=== PATIENT | male | born 1995 | race Caucasian/White ===

== ENCOUNTER 2016-10-14 14:43 | Emergency (ER) | payer BC ==
[~2016-10-14] VITALS: Ht 190.5 cm; Wt 132.9 kg
[~2016-10-14 14:43] MED LIST: HYDROCHLOROTH12.5 M1 PO; PREDNISONE 20MG20 MG PO; TESSALON PERLE100 MG PO; TORADOL10 M2 PO; ZITHROMAX Z PA250 MG PO; ZOFRAN ODT4 MG PO
[2016-10-14 15:41] LABS: HEMOGLOBIN 16.7 g/dL (14.1-18.0); LYMPH # 2.1 K/mm3 (0.7-4.5); LYMPH % 28.6 % (10-50)
--- NOTE | 2016-10-14 15:58 | Emergency Room Report ---
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 N Clinical Suspician of Infection? N Mental Status: 1 - Regular (Normal Baseline) Sepsis Risk:Possible Sepsis Risk Have you (or family members/close friends) recently traveled outside the [place]? N If Yes, where/when: Have you had exposure to infectious disease within the past month? N TB? Other? Specify: Patient complains of some lower quadrant pain crampy in nature moderate in severity it started yesterday and is worse today denies any nausea vomiting and states he has chronic diarrhea since he had his gallbladder removed. Denies any fevers or chills he points to his umbilicus as the source of the pain. No radiation to the back ALLERGIES Coded Allergies: No Known Allergies (07/18/16) Home Medications Reported Medications Hydrochlorothiazide (Hydrochlorothiazide 12.5MG) 12.5 MG PO DAILY #30 History Medical History General CAD? No Angina: No MD: No Hypertension? Yes Hyperlipidemia? No CHF? No DVT? No PE? No COPD? No Asthma? Yes Anemia? No GERD? No Gastric ulcers? No GI Bleed? No Hernia? No Thyroid Problems? No Hypothyroidism? No CVA? No Seizures? No Diabetes? No Insulin Dependent: No Insulin Pump: No Home FSBS? No Renal Insuffiency? No End Stage Renal Disease? No UTI? No Stones? No BPH? No GB Disease: Yes Nephritic Syndrome? No Asplenia? No Hepatitis? No Sickle Cell Disease? No Arthritis? No Migraines? No Cataracts? No Glaucoma? No MRSA? No HIV? No TB? No Anxiety? No Depression? No Cancer? No More? Yes Additional hx: FATTY LIVER Immunization Hx DT/Tetanus 5-10 Years Ago Flu 1203-4010 Flu Season Pneumonia Never Had Surgical Hx Previous Surgery?Y EAR TUBES TONSILS Cholecystectomy Family History Family Hx Diabetes No CAD No Hypertension Yes Hyperlipidemia No Cancer No TB No Social History Smoking Hx Smoker: Current Every Day Smoker Tobacco: Yes Type Cigarettes Packs/day < 1 Pack Alcohol Alcohol: No Review of Systems All Other Systems Reviewed and Negative Physical Exam Vital Signs Vital Signs Date Time Temp Pulse Resp B/P Pulse O2 O2 Flow FiO2 Ox Delivery Rate 10/14 1710 98.1 87 18 145/107 94 10/14 1618 67 18 142/74 100 10/14 1501 98.1 96 20 171/101 98 General Appearance: Nontoxic Head: Normocephalic, without obvious abnormality, atraumatic. Eyes: conjunctiva/corneas clear ENT: Mucous membranes moist. Neck: No jugular venous distention. Cardiac: regular rate and rhythm Lungs: Clear to auscultation bilaterally Abdomen: Patient has tenderness at McBurney's point, as a Rovsing sign, has some bilateral lower quadrant tenderness but mainly at McBurney's point, Nondistended, positive bowel sounds, no rebound : No CVA tenderness Extremities: no edema Musculoskeletal: No chest wall tenderness Skin: No rashes or lesions to exposed skin. Neurologic: Alert. No gross focal deficits Psychiatric: Normal affect (Nataly BECKER, Britton) General Appearance normal appearance Respiratory Status No: respiratory distress. Cardiovascular normal exam Neurologic alert Medical Decision Making LABS/Meds/Orders Pt receiving controlled substance in ED? 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 PROCEDURE: Oral Contrast: None IV Contrast: 75 mL of Isovue-370. FINDINGS: The lung bases are clear. There is mild diffuse hepatic steatosis. There is been a prior cholecystectomy. No biliary dilatation. The spleen, adrenal glands, and pancreas are unremarkable. No hydronephrosis or obstructing ureteral calculus evident. Unremarkable appendix. No intestinal obstruction or free air. No evidence of appendicitis or diverticulitis. No abnormal fluid collection or focal inflammatory change. IMPRESSION: No acute intra-abdominal or pelvic pathology apparent 10/14/16 1755 BONAL / PS AT 1749 AT 1751 End of Report Content Results/Orders Laboratory Tests 10/14/16 1530: Sodium 140, Potassium 3.9, Chloride 103, Carbon Dioxide 27, BUN 12, Creatinine 0.9, Estimated Creat Clear 246 H, Estimated GFR (MDRD) 108, Glucose 111 H, Calcium 9.2, Total Bilirubin 0.8, AST 41 H, ALT 95 H, Alkaline Phosphatase 97, Total Protein 8.2, Albumin 4.4, Globulin 3.8 H, Albumin/Globulin Ratio 1.2, Amylase 74, Lipase 174, WBC 7.3, RBC 5.62, Hgb 16.7, Hct 48.5, MCV 86.3, RDW 12.5, Plt Count 266, MPV 8.1, Gran % 63.7, Gran # 4.6, Lymphocytes % 28.6, Monocytes % 5.1, Eosinophils % 1.8, Basophils % 0.8, Lymphocytes # 2.1, Monocytes # 0.4, Eosinophils # 0.1, Basophils # 0.1, PUBS MCHC 34.4, MCH 29.7 Current Medication Orders Sig/Kirsten Start time Last Medication Dose Route Stop Time Status Admin Sodium Chloride 10 ML PRN PRN 10/14 1545 AC 10/14 IV 10/15 1535 1540 Nitroglycerin 0 .STK-MED ONE 10/14 1527 DC .ROUTE Orders Procedure Date/time Status DIET-NOTHING BY MOUTH 10/14 D Active OXYGEN PER NURSE 10/[address] ABD W/RLQ PAIN REQ 10/14 1559 Complete IV SALINE LOCK 10/14 1535 Active LIPASE 10/14 1535 Complete COMPLETE METABOLIC PANEL 10/14 1535 Complete CBC WITH AUTO DIFF 10/14 1535 Complete AMYLASE 10/14 1535 Complete Departure Departure Disposition DC Home or Self Care(routine) Clinical Impression Primary Impression: Abdominal pain Condition STABLE Referrals Ajith Vázquez MD Patient Instructions DI for Abdominal Pain-Adult Additional Instructions call your primary md for recheck ED Critical Care Critical Care No at 1836
--- NOTE | 2016-10-14 15:58 | Emergency Room Report ---
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 N Clinical Suspician of Infection? N Mental Status: 1 - Regular (Normal Baseline) Sepsis Risk:Possible Sepsis Risk Have you (or family members/close friends) recently traveled outside the [place]? N If Yes, where/when: Have you had exposure to infectious disease within the past month? N TB? Other? Specify: Patient complains of some lower quadrant pain crampy in nature moderate in severity it started yesterday and is worse today denies any nausea vomiting and states he has chronic diarrhea since he had his gallbladder removed. Denies any fevers or chills he points to his umbilicus as the source of the pain. No radiation to the back ALLERGIES Coded Allergies: No Known Allergies (07/18/16) Home Medications Reported Medications Hydrochlorothiazide (Hydrochlorothiazide 12.5MG) 12.5 MG PO DAILY #30 History Medical History General CAD? No Angina: No [place]: No Hypertension? Yes Hyperlipidemia? No CHF? No DVT? No PE? No COPD? No Asthma? Yes Anemia? No GERD? No Gastric ulcers? No GI Bleed? No Hernia? No Thyroid Problems? No Hypothyroidism? No CVA? No Seizures? No Diabetes? No Insulin Dependent: No Insulin Pump: No Home FSBS? No Renal Insuffiency? No End Stage Renal Disease? No UTI? No Stones? No BPH? No GB Disease: Yes Nephritic Syndrome? No Asplenia? No Hepatitis? No Sickle Cell Disease? No Arthritis? No Migraines? No Cataracts? No Glaucoma? No MRSA? No HIV? No TB? No Anxiety? No Depression? No Cancer? No More? Yes Additional hx: FATTY LIVER Immunization Hx DT/Tetanus 5-10 Years Ago Flu 4587-9605 Flu Season Pneumonia Never Had Surgical Hx Previous Surgery?Y EAR TUBES TONSILS Cholecystectomy Family History Family Hx Diabetes No CAD No Hypertension Yes Hyperlipidemia No Cancer No TB No Social History Smoking Hx Smoker: Current Every Day Smoker Tobacco: Yes Type Cigarettes Packs/day < 1 Pack Alcohol Alcohol: No Review of Systems All Other Systems Reviewed and Negative Physical Exam Vital Signs Vital Signs Date Time Temp Pulse Resp B/P Pulse O2 O2 Flow FiO2 Ox Delivery Rate 10/14 1710 98.1 87 18 145/107 94 10/14 1618 67 18 142/74 100 10/14 1501 98.1 96 20 171/101 98 General Appearance: Nontoxic Head: Normocephalic, without obvious abnormality, atraumatic. Eyes: conjunctiva/corneas clear ENT: Mucous membranes moist. Neck: No jugular venous distention. Cardiac: regular rate and rhythm Lungs: Clear to auscultation bilaterally Abdomen: Patient has tenderness at McBurney's point, as a Rovsing sign, has some bilateral lower quadrant tenderness but mainly at McBurney's point, Nondistended, positive bowel sounds, no rebound : No CVA tenderness Extremities: no edema Musculoskeletal: No chest wall tenderness Skin: No rashes or lesions to exposed skin. Neurologic: Alert. No gross focal deficits Psychiatric: Normal affect (Nataly BECKER, Britton) General Appearance normal appearance Respiratory Status No: respiratory distress. Cardiovascular normal exam Neurologic alert Medical Decision Making LABS/Meds/Orders Pt receiving controlled substance in ED? No Comment nterpreter: (ROBIN) Beam Dyer: ([email or web address]) Report Date: 10/14/2016 16:20:00 Report Status: Final Begin of Report Content [facility] RADIOLOGY REPORT REPORT#: [id number] PATIENT NAME: LOBO ELARY MED REC #: [id number] BIRTHDATE: [birth year] EXAM DATE: 10/14/16 LOCATION: ER ROOM/BED: TECH: [facility] DR: ADMIT DATE: ORDERING DR: Nataly BECKER, Britton CC: Adriel BECKER,Last Ingram MD, Britton CT ABD PELVIS W/ CONTRAST CLINICAL INDICATION: RLQ PAIN ORDERING PHYSICIAN: Britton Ingram MD PATIENT AGE: 20 years COMPARISON: None TECHNIQUE: Axial images obtained with sagittal and coronal reformats. PROCEDURE: Oral Contrast: None IV Contrast: 75 mL of Isovue-370. FINDINGS: The lung bases are clear. There is mild diffuse hepatic steatosis. There is been a prior cholecystectomy. No biliary dilatation. The spleen, adrenal glands, and pancreas are unremarkable. No hydronephrosis or obstructing ureteral calculus evident. Unremarkable appendix. No intestinal obstruction or free air. No evidence of appendicitis or diverticulitis. No abnormal fluid collection or focal inflammatory change. IMPRESSION: No acute intra-abdominal or pelvic pathology apparent 10/14/16 1755 BONAL / PS AT 1749 AT 1751 End of Report Content Results/Orders Laboratory Tests 10/14/16 1530: Sodium 140, Potassium 3.9, Chloride 103, Carbon Dioxide 27, BUN 12, Creatinine 0.9, Estimated Creat Clear 246 H, Estimated GFR (MDRD) 108, Glucose 111 H, Calcium 9.2, Total Bilirubin 0.8, AST 41 H, ALT 95 H, Alkaline Phosphatase 97, Total Protein 8.2, Albumin 4.4, Globulin 3.8 H, Albumin/Globulin Ratio 1.2, Amylase 74, Lipase 174, WBC 7.3, RBC 5.62, Hgb 16.7, Hct 48.5, MCV 86.3, RDW 12.5, Plt Count 266, MPV 8.1, Gran % 63.7, Gran # 4.6, Lymphocytes % 28.6, Monocytes % 5.1, Eosinophils % 1.8, Basophils % 0.8, Lymphocytes # 2.1, Monocytes # 0.4, Eosinophils # 0.1, Basophils # 0.1, PUBS MCHC 34.4, MCH 29.7 Current Medication Orders Sig/Kirsten Start time Last Medication Dose Route Stop Time Status Admin Sodium Chloride 10 ML PRN PRN 10/14 1545 AC 10/14 IV 10/15 1535 1540 Nitroglycerin 0 .STK-MED ONE 10/14 1527 DC .ROUTE Orders Procedure Date/time Status DIET-NOTHING BY MOUTH 10/14 D Active OXYGEN PER NURSE 10/[address] ABD W/RLQ PAIN REQ 10/14 1559 Complete IV SALINE LOCK 10/14 1535 Active LIPASE 10/14 1535 Complete COMPLETE METABOLIC PANEL 10/14 1535 Complete CBC WITH AUTO DIFF 10/14 1535 Complete AMYLASE 10/14 1535 Complete Departure Departure Disposition DC Home or Self Care(routine) Clinical Impression Primary Impression: Abdominal pain Condition STABLE Referrals Ajith Vázquez MD Patient Instructions DI for Abdominal Pain-Adult Additional Instructions call your primary md for recheck ED Critical Care Critical Care No at 1835
--- NOTE | 2016-10-14 17:55 | RADIOLOGY REPORT PS360 ---
CT ABD PELVIS W/ CONTRAST CLINICAL INDICATION: RLQ PAIN ORDERING PHYSICIAN: Britton Ingram MD PATIENT AGE: 20 years COMPARISON: None TECHNIQUE: Axial images obtained with sagittal and coronal reformats. PROCEDURE: Oral Contrast: None IV Contrast: 75 mL of Isovue-370. FINDINGS: The lung bases are clear. There is mild diffuse hepatic steatosis. There is been a prior cholecystectomy. No biliary dilatation. The spleen, adrenal glands, and pancreas are unremarkable. No hydronephrosis or obstructing ureteral calculus evident. Unremarkable appendix. No intestinal obstruction or free air. No evidence of appendicitis or diverticulitis. No abnormal fluid collection or focal inflammatory change. IMPRESSION: No acute intra-abdominal or pelvic pathology apparent
[2016-10-14 18:45] VITALS: BP 149/102
== END 2016-10-14 19:06 | disposition home or self-care (01) ==
LOC: ER 14:43
PROVIDERS: Emergency Medicine
DX: R10.30 Lower abdominal pain, unspecified (principal); I10 Essential (primary) hypertension; Z72.0 Tobacco use
CPT/HCPCS: Q9967

== ENCOUNTER 2017-06-14 23:45 | Emergency (ER) | payer BC ==
[~2017-06-14] VITALS: Ht 190.5 cm; Wt 127.5 kg
--- OUTSIDE RECORDS SUMMARY | 2017-06-15 00:51 | External Medical Summary Rpt | CCD ---
Author Author [employer] Address Unknown Phone Unavailable Purpose Continuity of Care Document - through 2016
--- OUTSIDE RECORDS SUMMARY | 2017-06-15 00:51 | External Medical Summary Rpt | CCD ---
Author Author , ZAHRA SWEENEY Address Unknown Phone Purpose Continuity of Care Document - through 2016 Problems Code Diagnosis DOS Provider Status J40 BRONCHITIS, NOT SPECIFIED ACUTE OR CHRONIC J45.909 UNSPECIFIED ASTHMA, UNCOMPLICAT ED K76.0 FATTY (CHANGE OF) LIVER, NOT ELSEWHERE CLASSIFIED M54.5 LOW BACK PAIN R10.9 UNSPECIFIED ABDOMINAL PAIN S61.019A LACERATION W/O FOREIGN BODY OF THMB W/O DAMAGE TO NAIL, INIT
--- OUTSIDE RECORDS SUMMARY | 2017-06-15 00:52 | External Medical Summary Rpt | CCD ---
Demographics Preferred Language Estonian Marital Status Unknown Jainism Affiliation Unknown Race Unknown Ethnic Group Unknown Author Author , ZAHRA SWEENEY Address Unknown Phone Immunization Unable to retrieve immunization data due to connection failure with Immunization Registry. Please try again later.
--- OUTSIDE RECORDS SUMMARY | 2017-06-15 00:52 | External Medical Summary Rpt ---
Author Author ZAHRA Lau, [employer] Organization [employer] Address Unknown Phone Unavailable
--- OUTSIDE RECORDS SUMMARY | 2017-06-15 00:52 | External Medical Summary Rpt | CCD ---
Demographics Preferred Language Irish Marital Status Unknown Lutheran Affiliation Unknown Race Unknown Ethnic Group Unknown Author Author , ZAHRA SWEENEY Address Unknown Phone Immunization Unable to retrieve immunization data due to connection failure with Immunization Registry. Please try again later.
--- NOTE | 2017-06-15 01:14 | Emergency Room Report ---
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 N Clinical Suspician of Infection? N Mental Status: 1 - Regular (Normal Baseline) Sepsis Risk:Possible Sepsis Risk Have you (or family members/close friends) recently traveled outside the [place]? N If Yes, where/when: Have you had exposure to infectious disease within the past month? N TB? Other? Specify: Source patient, RN notes reviewed, family, old records Exam Limitations no limitations Comment acute fall with rt shoulder injury tonight Cardiac Chest Pain Chest pain indicative of cardiac No Timing/Duration this evening Severity moderate ALLERGIES Coded Allergies: No Known Allergies (07/18/16) History Medical History General CAD? No Angina: No [place]: No Hypertension? Yes Hyperlipidemia? No CHF? No DVT? No PE? No COPD? No Asthma? Yes Anemia? No GERD? No Gastric ulcers? No GI Bleed? No Hernia? No Thyroid Problems? No Hypothyroidism? No CVA? No Seizures? No Diabetes? No Insulin Dependent: No Insulin Pump: No Home FSBS? No Renal Insuffiency? No End Stage Renal Disease? No UTI? No Stones? No BPH? No GB Disease: Yes Nephritic Syndrome? No Asplenia? No Hepatitis? No Sickle Cell Disease? No Arthritis? No Migraines? No Cataracts? No Glaucoma? No MRSA? No HIV? No TB? No Anxiety? No Depression? No Cancer? No More? Yes Additional hx: FATTY LIVER Immunization Hx DT/Tetanus 11/25/2016 Flu 2014-5935 Flu Season Pneumonia Never Had Surgical Hx Previous Surgery?Y EAR TUBES TONSILS Cholecystectomy Family History Family Hx Diabetes No CAD No Hypertension Yes Hyperlipidemia No Cancer No TB No Social History Smoking Hx Smoker: Current Every Day Smoker Tobacco: Yes Type Cigarettes Packs/day < 1 Pack Alcohol Alcohol: No Drugs none Review of Systems All Other Systems Reviewed and Negative Constitutional denies fever Eyes denies drainage ENT denies: ear pain, epistaxis. Respiratory denies cough, denies shortness of breath, denies wheezing Cardiovascular denies chest pain, denies palpitations, denies syncope Gastrointestinal denies abdominal pain, denies diarrhea, denies vomiting Genitourinary denies: dysuria, frequency, hesitancy, hematuria. Musculoskeletal see HPI, denies back pain, joint pain, denies joint swelling, denies neck pain Skin denies rash Psychiatric/Neurological denies headache, denies seizure Physical Exam Vital Signs Vital Signs Date Time Temp Pulse Resp B/P Pulse O2 O2 Flow FiO2 Ox Delivery Rate 06/15 0023 98.3 99 185 153/79 98 - WBC >12,000 or <4,000 or 10% bands? 2 or more SIRS Criteria Met? B/P:153/79 MAP:103 Creatinine >2.0? UA output<0.5ml/kg/hr for 2 hrs? Platelet count >100,000? Lactate >2.0mmol/1? INR >1.2 or PTT > than 60 sec? Evidence of Organ Dysfunction? Provider documented clinical suspician of infection? N Sepsis Criteria Count: 2 Sepsis Risk: Possible Sepsis Risk General Appearance no apparent distress Eye Exam - bilateral eye PERRL, bilateral eye EOMI Ear, Nose, Throat normal ENT inspection Neck supple Respiratory Status No: respiratory distress. 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 No Results/Orders Orders Procedure Date/time Status [id number] VIEW-RT 06/15 59 Active [id number] VIEWS 06/15 37 Active XRAY/CT/US XRAY/CT/US XRAY shoulder XR interpretation by reviewed by me Xray Results abnormal (ant dislocation) Procedures Orthopedic/Inj/Splint IV Sedation Airway Assessment IV Sedation used? No Neck Extension: Normal Dentition: Intact Modified Mallampati Class: MP Class II ASA prior to sedation per Dr: 3 Ortho Proc/Injections/Splints Risks/benefits discussed with pt/guardian? Yes IV conscious sedation No Reduction of dislocation Location shoulder Reductioni Method Traction/Counter traction. Comment tolerated well Pre-Proc Neuro Vasc Exam normal Post-Proc Neuro Vasc Exam unchanged from pre-exam Departure Departure Time of Disposition 010 Disposition DC Home or Self Care(routine) Clinical Impression Primary Impression: Dislocation, shoulder, anterior Qualifiers: Encounter type: initial encounter Laterality: right Qualified Code: S43.014A - Anterior dislocation of right humerus, initial encounter Condition STABLE Referrals Ajith Vázquez MD (Family) Patient Instructions DI for Shoulder Dislocation Additional Instructions advil/tyenol and see pcp for follow up and use as tolerated - lifting restrictions x 24 hrs Discharge Counseling Counseled pt/family regarding diagnosis, test results, follow up needs ED Critical Care Critical Care No at 0114
--- NOTE | 2017-06-15 01:14 | Emergency Room Report ---
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 N Clinical Suspician of Infection? N Mental Status: 1 - Regular (Normal Baseline) Sepsis Risk:Possible Sepsis Risk Have you (or family members/close friends) recently traveled outside the [place]? N If Yes, where/when: Have you had exposure to infectious disease within the past month? N TB? Other? Specify: Source patient, RN notes reviewed, family, old records Exam Limitations no limitations Comment acute fall with rt shoulder injury tonight Cardiac Chest Pain Chest pain indicative of cardiac No Timing/Duration this evening Severity moderate ALLERGIES Coded Allergies: No Known Allergies (07/18/16) History Medical History General CAD? No Angina: No VA: No Hypertension? Yes Hyperlipidemia? No CHF? No DVT? No PE? No COPD? No Asthma? Yes Anemia? No GERD? No Gastric ulcers? No GI Bleed? No Hernia? No Thyroid Problems? No Hypothyroidism? No CVA? No Seizures? No Diabetes? No Insulin Dependent: No Insulin Pump: No Home FSBS? No Renal Insuffiency? No End Stage Renal Disease? No UTI? No Stones? No BPH? No GB Disease: Yes Nephritic Syndrome? No Asplenia? No Hepatitis? No Sickle Cell Disease? No Arthritis? No Migraines? No Cataracts? No Glaucoma? No MRSA? No HIV? No TB? No Anxiety? No Depression? No Cancer? No More? Yes Additional hx: FATTY LIVER Immunization Hx DT/Tetanus 11/25/2016 Flu [id number] Flu Season Pneumonia Never Had Surgical Hx Previous Surgery?Y EAR TUBES TONSILS Cholecystectomy Family History Family Hx Diabetes No CAD No Hypertension Yes Hyperlipidemia No Cancer No TB No Social History Smoking Hx Smoker: Current Every Day Smoker Tobacco: Yes Type Cigarettes Packs/day < 1 Pack Alcohol Alcohol: No Drugs none Review of Systems All Other Systems Reviewed and Negative Constitutional denies fever Eyes denies drainage ENT denies: ear pain, epistaxis. Respiratory denies cough, denies shortness of breath, denies wheezing Cardiovascular denies chest pain, denies palpitations, denies syncope Gastrointestinal denies abdominal pain, denies diarrhea, denies vomiting Genitourinary denies: dysuria, frequency, hesitancy, hematuria. Musculoskeletal see HPI, denies back pain, joint pain, denies joint swelling, denies neck pain Skin denies rash Psychiatric/Neurological denies headache, denies seizure Physical Exam Vital Signs Vital Signs Date Time Temp Pulse Resp B/P Pulse O2 O2 Flow FiO2 Ox Delivery Rate 06/15 0023 98.3 99 185 153/79 98 - WBC >12,000 or <4,000 or 10% bands? 2 or more SIRS Criteria Met? B/P:153/79 MAP:103 Creatinine >2.0? UA output<0.5ml/kg/hr for 2 hrs? Platelet count >100,000? Lactate >2.0mmol/1? INR >1.2 or PTT > than 60 sec? Evidence of Organ Dysfunction? Provider documented clinical suspician of infection? N Sepsis Criteria Count: 2 Sepsis Risk: Possible Sepsis Risk General Appearance no apparent distress Eye Exam - bilateral eye PERRL, bilateral eye EOMI Ear, Nose, Throat normal ENT inspection Neck supple Respiratory Status No: respiratory distress. 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 No Results/Orders Orders Procedure Date/time Status [id number] VIEW-RT 06/15 59 Active [id number] VIEWS 06/15 37 Active XRAY/CT/US XRAY/CT/US XRAY shoulder XR interpretation by reviewed by me Xray Results abnormal (ant dislocation) Procedures Orthopedic/Inj/Splint IV Sedation Airway Assessment IV Sedation used? No Neck Extension: Normal Dentition: Intact Modified Mallampati Class: MP Class II ASA prior to sedation per Dr: 3 Ortho Proc/Injections/Splints Risks/benefits discussed with pt/guardian? Yes IV conscious sedation No Reduction of dislocation Location shoulder Reductioni Method Traction/Counter traction. Comment tolerated well Pre-Proc Neuro Vasc Exam normal Post-Proc Neuro Vasc Exam unchanged from pre-exam Departure Departure Time of Disposition 010 Disposition DC Home or Self Care(routine) Clinical Impression Primary Impression: Dislocation, shoulder, anterior Qualifiers: Encounter type: initial encounter Laterality: right Qualified Code: S43.014A - Anterior dislocation of right humerus, initial encounter Condition STABLE Referrals Ajith Vázquez MD (Family) Patient Instructions DI for Shoulder Dislocation Additional Instructions advil/tyenol and see pcp for follow up and use as tolerated - lifting restrictions x 24 hrs Discharge Counseling Counseled pt/family regarding diagnosis, test results, follow up needs ED Critical Care Critical Care No at 0114
[2017-06-15 01:30] VITALS: BP 153/79
--- NOTE | 2017-06-15 21:26 | RADIOLOGY REPORT PS360 ---
[id number] VIEWS HISTORY: right shoulder Patient Age: 21 years: Male Ordering Physician: Jesus Escobedo MD TECHNIQUE: 3 views right shoulder COMPARISON : None FINDINGS Anterior cerebral coracoid dislocation shoulder. No fracture evident. Humeral head appears intact. Glenoid intact. No previous right shoulder studies. . Slightly abrupt contour at the base the humeral head may benefit from follow-up to exclude a subtle Hill-Sachs deformity. Unimpressive on the studies. AC joint is intact. Scapula and of the coracoid and acromion appear intact. Upper right lung clear. IMPRESSION: Anterior dislocation right shoulder. Subcoracoid
--- NOTE | 2017-06-15 21:27 | RADIOLOGY REPORT PS360 ---
[id number] VIEW-RT 0057 hours HISTORY: POST REDUCTIONof right shoulder dislocation Patient Age: 21 years: Male Ordering Physician: Jesus Escobedo MD TECHNIQUE: Single AP view post reduction COMPARISON :. Previous 3 view right shoulder from 0039 hours FINDINGS This single AP image shows that the normal glenohumeral relationships of been reestablished in this projection. The humeral head appears intact on this study. AC joint intact. Glenoid intact IMPRESSION: . . dislocation right shoulder has been reduced; with Normal glenohumeral relationships reestablished.
== END 2017-06-15 01:31 | disposition home or self-care (01) ==
LOC: ER 23:45
PROC: 0RSJXZZ Reposition Right Shoulder Joint, External Approach (ICD-10-PCS; principal; 2017-06-15)
DX: S43.014A Anterior dislocation of right humerus, initial encounter (principal); I10 Essential (primary) hypertension; J45.909 Unspecified asthma, uncomplicated; F17.210 Nicotine dependence, cigarettes, uncomplicated; W23.0XXA Caught, crushed, jammed, or pinched between moving objects, initial encounter